=== PATIENT | female | born 1935 | race Caucasian/White ===

== ENCOUNTER → 2018-04-13 08:02 | Outpatient (CLI) | payer MEDICARE, BC, SELFPAY ==
--- NOTE | 2018-04-13 09:29 | P.PCN_ITS ---
Cardiac Stress Test Report Referral & Results Date Patient Seen: 04/13/18 Requesting provider: Susan Champagne Indication: Chest pain, known coronary disease Procedure Note: After both written and verbal informed consent the patient had an IV started by the diagnostic imaging RN and then was hooked up to the treadmill monitoring system. The patient was placed on the treadmill at 1 mile an hour with no elevation and was then injected with the Alicja scan material. The Cardiolite was then immediately administered. The patient spent an additional 2-3 minutes on the treadmill before being returned to the [facility] in t he supine position. The patient had a normal response to all infused materials. Impression: Normal response to infuse materials Please see perfusion imaging report for details regarding possible ischemia Please note: Actual ECG tracings can be found in the PACS system.
--- NOTE | 2018-04-15 06:41 | DI.NM.S_ITS ---
DATE OF SERVICE: 04/13/2018 PROCEDURE: Lexiscan perfusion study. INDICATION: Chest pain with underlying coronary artery disease with a normal left coronary artery from the right coronary cusp, status post 2-vessel bypass surgery in 2003, with diabetes mellitus, hypertension, and hyperlipidemia. RADIOPHARMACEUTICAL: 25.0 mCi technetium-99m Myoview IV was injected at stress, and 26.8 mCi technetium-99m Myoview IV was injected at rest. CARDIAC STRESS: The patient underwent IV Lexiscan perfusion study under the supervision of an attending staff. She remained hemodynamically stable. Baseline EKG revealed atrial fibrillation with asymmetrical T-wave inversion and ST depression diffusely, which got more pronounced during stress. No new significant arrythmias. The patient remained in atrial fibrillation. No sustained ventricular tachycardia. RAW DATA: There was breast shadow seen. GATED STUDY: Resting LV ejection fraction 55%. Stress LV ejection fraction 72% without any significant wall motion abnormalities. TID ratio 0.98, which is within normal limits. Lung/heart ratio 0.48, which is mildly abnormal, suggestive of increased LV pressure with possibility of diastolic dysfunction or valvular pathology. Resting end-diastolic volume 102 mL. MYOCARDIAL PERFUSION: Stress supine and resting supine images revealed mildly decreased perfusion of anterior apex, which appears to be improved during prone images. Likely, this is due to breast tissue antennation artifact. I don't see any convincing ischemia infarction. CONCLUSION: I will call this study likely a normal myocardial perfusion study with evidence of breast tissue attenuation artifact. No convincing ischemia infarction is seen. No transient ischemic dilatation. Lung/heart ratio is mildly abnormal with possibility of diastolic dysfunction or left-sided valvular pathology. As far as perfusion scan is concerned, this is a low-risk myocardial perfusion scan. Barbra Pace - CYTOPATHOLOGIST/fn/ts doc#: [id number]/job#: [id number] dd: 04/14/2018 16:13:00 dt: 04/15/2018 06:23:00 DICTATING MD/COPIES TO: Susan Champagne MD COPIES MNE: RANDY
== END ==
PROVIDERS: PCP Family Medicine; Visit Provider Internal Medicine Cardiovascular Disease
DX: R07.9 Chest pain, unspecified (principal); I25.10 Atherosclerotic heart disease of native coronary artery without angina pectoris; E11.9 Type 2 diabetes mellitus without complications; I10 Essential (primary) hypertension; E78.5 Hyperlipidemia, unspecified; Z95.1 Presence of aortocoronary bypass graft
CPT/HCPCS: 78452; 93016; 93017; 93018; A9502; J2785

== ENCOUNTER → 2021-08-25 09:36 | Outpatient (CLI) | payer MEDICARE, BC, SELFPAY ==
--- NOTE | 2021-08-25 | DI.NM.S_ITS ---
PROCEDURE: NM MIKE PERF SPECT R&S PHARM Rest and pharmacological stress myocardial perfusion SPECT with gated imaging and ejection fraction RADIOPHARMACEUTICAL: 12.3 mCi Tc-99m tetrafosmin IV at rest and 26.6 mCi Tc-99m tetrafosmin IV at peak effect of pharmacological stress. [id number] was performed. INDICATIONS: Other chest pain TECHNIQUE: Radiopharmaceutical was injected at peak stress test, and also at rest. SPECT images were obtained. SPECT myocardial perfusion images were displayed in short axis, horizontal long axis, and vertical long axis views. Gated images were reviewed using [employer] software. COMPARISON: None. CARDIAC STRESS: A pharmacologic stress test was performed under the supervision of an attending staff, using an infusion of lexiscan 0.4mg IV X1. Hemodynamic data: There is normal blood pressure and heart rate response to pharmacologic stress. Symptoms: The patient had non-diagnostic chest pain with lexiscan. Aminophylline: 75mg IV X1 given. EKG: Atrial fibrillation with controlled ventricular rate present during the study. No diagnostic changes of ischemia; no ectopy. FINDINGS: Raw data: There is good myocardial uptake of radiotracer. No significant motion artifacts. Left ventricle function: Gated images demonstrate normal left ventricular wall thickening. No segmental wall motion abnormalities. No transient ischemic dilation; TID is 1.16 (normal less than 1.3). Left ventricle resting end diastolic volume is 81 mL. Left ventricle stress ejection fraction is 72%; normal range is above 45%. Myocardial perfusion: There is normal distribution of activity in the right and left ventricular myocardium. No fixed or reversible perfusion defects. IMPRESSION: Low risk, normal pharmaceutical nuclear stress 1) No perfusion evidence of ischemia or infarction. 2) Normal left ventricular size, wall motion, and systolic function (EF post strss 72%). 3) No ST changes with lexiscan. 4) Non-diagnostic chest pain with lexiscan. 5) Compared to the nuc stress test 04/13/2018, no significant change. Dictated by: Brody Allison MD on 08/25/2021 at 16:37 Approved by: Brody Allison MD on 08/25/2021 at 16:40
[2021-08-25 11:12] LABS: COVID19 -Nasal RAPID Negative (Negative)
== END ==
PROVIDERS: PCP Internal Medicine; Referring Provider Internal Medicine Cardiovascular Disease; Visit Provider Internal Medicine Cardiovascular Disease
DX: R07.89 Other chest pain (principal); Z20.822 Contact with and (suspected) exposure to COVID-19
CPT/HCPCS: 78452; 87635; 93017; A9502; J2785